=== PATIENT | male | born 1985 | race Caucasian/White ===

== ENCOUNTER 2018-02-16 14:21 | Emergency (ER) | payer SELFPAY ==
[2018-02-16 15:22] LABS: #Eosinphils 0.1 thou/uL (0.0-0.7); #Lymphocytes 1.6 thou/uL (1.20-3.40); #Monocytes 0.6 thou/uL (0.11-0.59); #Neutrophils 5.8 thou/uL (1.40-6.50); %Basophils 0.6 % (0.0-1.0); %Eosinophils 0.6 % (0.0-10.0); %Lymphocytes 19.7 % (21.0-51.0); %Monocytes 6.9 % (0.0-10.0); %Neutrophils 72.2 % (42.0-75.0); Hemoglobin 17.2 g/dL (14.0-18.0); Mean Corpuscular HGB CONC 34.6 g/dL (32.0-36.0); Mean Corpuscular Hemoglobin 30.6 pg (27.0-31.0); Mean Corpuscular Volume 88.4 fL (78.0-98.0); Mean Platelet Volume 8.9 fL (7.4-10.4); Platelet Count 215 thou/uL (130-400); RBC Distribution Width 11.8 % (11.5-14.5); Red Blood Cell (RBC) Count 5.62 mill/uL (4.70-6.10)
[2018-02-16 15:48] LABS: ALT (SGPT) 13 U/L (8-55); AST (SGOT) 20 U/L (5-34); Albumin 4.4 g/dL (3.5-5.0); Alkaline Phosphatase 75 U/L (40-150); Anion Gap 15 mmol/L (10-20); BUN (Urea Nitrogen) 10 mg/dL (8.9-20.6); Bilirubin, Total 1.1 mg/dL (0.2-1.2); Calc. Creatinine Clearance 0 mL/min (70-130); Calcium 9.8 mg/dL (7.8-10.44); Carbon Dioxide 24 mmol/L (22-29); Chloride 99 mmol/L (98-107); Estimated GFR-MDRD 86; Globulin 3.4 g/dL (2.4-3.5); Glucose 117 mg/dL (70-105); Protein, Total 7.8 g/dL (6.0-8.3); Sodium 135 mmol/L (136-145)
[2018-02-16 15:53] LABS: Potassium 2.7 mmol/L (3.5-5.1)
[2018-02-16] MEDS ORDERED: Potassium Chloride 20 MEQ TAB ONE (16:02)
== END 2018-02-16 17:10 | disposition home or self-care (01) ==
LOC: ERS 14:21
DX: E87.6 Hypokalemia (principal); E86.0 Dehydration; K04.7 Periapical abscess without sinus; I10 Essential (primary) hypertension; F32.9 Major depressive disorder, single episode, unspecified; F41.9 Anxiety disorder, unspecified; F17.210 Nicotine dependence, cigarettes, uncomplicated; Z79.899 Other long term (current) drug therapy
CPT/HCPCS: 36415; 80053; 85025; 93005; 96360

== ENCOUNTER 2019-09-09 09:50 | Emergency (ER) | payer SELFPAY ==
[2019-09-09 10:35] LABS: #Eosinphils 0.1 thou/uL (0.0-0.7); #Lymphocytes 1.6 thou/uL (1.20-3.40); #Monocytes 0.6 thou/uL (0.11-0.59); #Neutrophils 3.2 thou/uL (1.40-6.50); %Basophils 0.3 % (0.0-1.0); %Eosinophils 1.6 % (0.0-10.0); %Lymphocytes 28.5 % (21.0-51.0); %Monocytes 11.4 % (0.0-10.0); %Neutrophils 58.3 % (42.0-75.0); Hemoglobin 15.8 g/dL (14.0-18.0); Mean Corpuscular HGB CONC 33.7 g/dL (32.0-36.0); Mean Corpuscular Hemoglobin 32.6 pg (27.0-31.0); Mean Corpuscular Volume 96.8 fL (78.0-98.0); Mean Platelet Volume 9.1 fL (7.4-10.4); Platelet Count 183 thou/uL (130-400); RBC Distribution Width 11.8 % (11.5-14.5); Red Blood Cell (RBC) Count 4.86 mill/uL (4.70-6.10); White Blood Cell (WBC) Count 5.5 thou/uL (4.8-10.8)
--- NOTE | 2019-09-09 10:52 | RAD ---
XR Chest 1 View Portable HISTORY: Altered mental status. COMPARISON: None. FINDINGS: Heart size and mediastinum are within normal limits. The lungs are clear of infiltrates. No significant bony findings. IMPRESSION: No active intrathoracic disease.
[2019-09-09 10:59] LABS: Acetaminophen Less than 6.0 mcg/mL (10.0-30.0); Alcohol Less than 10 mg/dL (Less than 10); Salicylate Less than 8.0 mg/dL (15.0-30.0)
[2019-09-09 11:04] LABS: ALT (SGPT) 16 U/L (8-55); AST (SGOT) 18 U/L (5-34); Alkaline Phosphatase 75 U/L (40-110); Anion Gap 11 mmol/L (10-20); BUN (Urea Nitrogen) 12 mg/dL (8.9-20.6); Bilirubin, Total 0.3 mg/dL (0.2-1.2); CK (CPK) 99 U/L (30-200); Calc. Creatinine Clearance 0 mL/min (70-130); Calcium 8.5 mg/dL (7.8-10.44); Carbon Dioxide 23 mmol/L (22-29); Chloride 107 mmol/L (98-107); Estimated GFR-MDRD 90; Glucose 94 mg/dL (70-105); Sodium 137 mmol/L (136-145)
== END 2019-09-09 14:10 | disposition home or self-care (01) ==
LOC: ERS 09:50
DX: F15.10 Other stimulant abuse, uncomplicated (principal); I10 Essential (primary) hypertension; F31.9 Bipolar disorder, unspecified; F41.9 Anxiety disorder, unspecified; F17.210 Nicotine dependence, cigarettes, uncomplicated
CPT/HCPCS: 36415; 71045; 80053; 80307; 82550; 83605; 83735; 84484; 85025; 93005

== ENCOUNTER 2019-12-05 11:14 | Emergency (ER) | payer SELFPAY ==
[2019-12-05] MEDS ORDERED: Ketorolac Tromethamine 30 MG/ML VIAL ONE (13:22)
[2019-12-05] MEDS ORDERED: HYDROcodone/Acetaminophen 5/325 mg Tablet ONE (13:22)
== END 2019-12-05 15:24 | disposition home or self-care (01) ==
LOC: ERS 11:14
DX: S92.002A Unspecified fracture of left calcaneus, initial encounter for closed fracture (principal); S92.001A Unspecified fracture of right calcaneus, initial encounter for closed fracture; I10 Essential (primary) hypertension; F41.9 Anxiety disorder, unspecified; F32.9 Major depressive disorder, single episode, unspecified; F20.9 Schizophrenia, unspecified; F90.9 Attention-deficit hyperactivity disorder, unspecified type; F17.210 Nicotine dependence, cigarettes, uncomplicated; Z79.899 Other long term (current) drug therapy; W13.9XXA Fall from, out of or through building, not otherwise specified, initial encounter
CPT/HCPCS: 28400; 96372; J1885

== ENCOUNTER 2020-07-27 21:08 | Emergency (ER) | payer SELFPAY ==
[2020-07-27 21:47] LABS: #Lymphocytes 1.8 thou/uL (1.20-3.40); #Neutrophils 7.6 thou/uL (1.40-6.50); %Basophils 0.4 % (0.0-1.0); %Eosinophils 0.4 % (0.0-10.0); %Lymphocytes 17.3 % (21.0-51.0); %Monocytes 9.5 % (0.0-10.0); %Neutrophils 72.4 % (42.0-75.0); Hemoglobin 15.4 g/dL (14.0-18.0); Mean Corpuscular HGB CONC 33.6 g/dL (32.0-36.0); Mean Corpuscular Hemoglobin 30.8 pg (27.0-31.0); Mean Corpuscular Volume 91.6 fL (78.0-98.0); Mean Platelet Volume 8.4 fL (7.4-10.4); Platelet Count 234 thou/uL (130-400); RBC Distribution Width 13.1 % (11.5-14.5); White Blood Cell (WBC) Count 10.5 thou/uL (4.8-10.8)
[2020-07-27 22:09] LABS: ALT (SGPT) 34 U/L (8-55); AST (SGOT) 27 U/L (5-34); Albumin 4.2 g/dL (3.5-5.0); Alkaline Phosphatase 97 U/L (40-110); Anion Gap 15 mmol/L (10-20); BUN (Urea Nitrogen) 22 mg/dL (8.9-20.6); Bilirubin, Total 0.9 mg/dL (0.2-1.2); Calc. Creatinine Clearance 0 mL/min (70-130); Calcium 8.9 mg/dL (7.8-10.44); Carbon Dioxide 23 mmol/L (22-29); Chloride 104 mmol/L (98-107); Globulin 3.5 g/dL (2.4-3.5); Glucose 102 mg/dL (70-105); Potassium 3.5 mmol/L (3.5-5.1); Protein, Total 7.7 g/dL (6.0-8.3); Sodium 138 mmol/L (136-145)
[2020-07-27 22:18] LABS: Amphetamine Not Detected (NotDetected); Barbiturates Screen Not Detected (NotDetected); Benzodiazepine Screen Not Detected (NotDetected); Cocaine Metabolite Screen Not Detected (NotDetected); Medtox Control Line Valid? VALID (VALID); Medtox Reader # READER 4; Methadone Not Detected (NotDetected); Methamphetamine Not Detected (NotDetected); Opiate Screen Not Detected (NotDetected); Oxycodone Screen Not Detected (NotDetected); Phencyclidine (PCP) Not Detected (NotDetected); THC/Cannabinoid Screen Detected (NotDetected); Tricyclic Screen Detected (NotDetected)
[2020-07-27 23:35] LABS: Alcohol Less than 10 mg/dL (Less than 10)
[2020-07-27 23:38] LABS: Acetaminophen Less than 6.0 mcg/mL (10.0-30.0); CK (CPK) 663 U/L (30-200); Salicylate Less than 8.0 mg/dL (15.0-30.0)
== END 2020-07-28 03:41 | disposition home or self-care (01) ==
LOC: ERS 21:08
DX: R44.3 Hallucinations, unspecified (principal); I10 Essential (primary) hypertension; F17.210 Nicotine dependence, cigarettes, uncomplicated; Z79.899 Other long term (current) drug therapy
CPT/HCPCS: 36415; 36416; 80053; 80306; 80307; 82550; 84443; 85025; 93005

== ENCOUNTER 2020-07-28 05:21 | Inpatient (IN) | payer SELFPAY ==
[2020-07-28] MEDS ORDERED: Succinylcholine 200 MG/10 ml SYRINGE FS ONE (05:24)
[2020-07-28] MEDS ORDERED: EPINEPHrine 1 MG/10 ML Abboject SYRINGE ONE (05:28)
[2020-07-28] MEDS ORDERED: Amiodarone 150 MG/3 ML VIAL ONE (05:28)
[2020-07-28] MEDS ORDERED: Calcium Chloride 1 GM/10 ML Abboject SYRINGE ONE (05:28)
[2020-07-28] MEDS ORDERED: Sodium Bicarb 50 MEQ/50 ML Abboject 8.4% SYRINGE ONE (05:28)
[2020-07-28] MEDS ORDERED: Rocuronium Bromide 10 MG/ML (10ML VIAL) ONE (05:28)
[2020-07-28] MEDS ORDERED: Norepinephrine 8 MG/0.9% NS 250 ML ONE (05:46)
[2020-07-28 05:53] LABS: Actual Bicarbonate (HCO3a) 5.7 mEq/L (22-28); Analyzer IN Cardio ER; Base Excess (BEa) -29.7 mEq/L (-2.0 to +3.0); CO2 Tension 41.1 mmHg (35.0-45.0); Calcium, Ionized (arterial) 1.25 mmol/L (1.12-1.30); Carboxyhemoglobin (COHb) 1.4 gm% (0.0-3.0); Hemoglobin (Hb) 14.5 g/dL (14.0-18.0)
[2020-07-28 05:55] LABS: pH, Arterial 6.76 (7.35-7.45)
[2020-07-28 05:56] LABS: O2 Tension (PaO2), arterial 549.6 mmHg (80.0-100.0); Puncture Site LFA
[2020-07-28 05:57] LABS: ALV-art Gradient 107.025 mmHg (0-20)
[2020-07-28] MEDS ORDERED: Fentanyl CADD 100 ML IV SCH (06:00)
[2020-07-28 06:03] LABS: Bilirubin Negative (Negative); Blood, Urine Negative (Negative); Glucose, Urine (Dipstick) Negative (Negative); Ketone, Urine 40 mg/dL (Negative); Leukocyte Negative (Negative); Nitrite Negative (Negative); Protein, Urine (Dipstick) Trace mg/dL (Neg-Trace); Specific Gravity, Urine 1.025 (1.005-1.030); Urobilinogen 0.2 mg/dL (Less than 2)
[2020-07-28 06:04] LABS: Bacteria/HPF None Seen HPF (None Seen); Clarity Clear (Clear); Mucous/LPF 1+ LPF (<2+); RBC/HPF 0-3 HPF (0-3); Squamous Epithelial 0-3 HPF (0-3); WBC/HPF 0-3 HPF (0-3)
[2020-07-28 06:14] LABS: Amphetamine Not Detected (NotDetected); Barbiturates Screen Not Detected (NotDetected); Benzodiazepine Screen Not Detected (NotDetected); Cocaine Metabolite Screen Not Detected (NotDetected); Medtox Control Line Valid? VALID (VALID); Medtox Reader # READER 4; Methadone Not Detected (NotDetected); Methamphetamine Not Detected (NotDetected); Opiate Screen Not Detected (NotDetected); Oxycodone Screen Not Detected (NotDetected); Phencyclidine (PCP) Not Detected (NotDetected); THC/Cannabinoid Screen Detected (NotDetected); Tricyclic Screen Not Detected (NotDetected)
[2020-07-28 06:27] LABS: ALT (SGPT) 137 U/L (8-55); AST (SGOT) 195 U/L (5-34); Acetaminophen Less than 6.0 mcg/mL (10.0-30.0); Albumin 3.8 g/dL (3.5-5.0); Alcohol Less than 10 mg/dL (Less than 10); Alkaline Phosphatase 103 U/L (40-110); Anion Gap 46 mmol/L (10-20); BUN (Urea Nitrogen) 21 mg/dL (8.9-20.6); Band 6 % (5-11); Bilirubin, Total 0.9 mg/dL (0.2-1.2); Calc. Creatinine Clearance 0 mL/min (70-130); Calcium 12.1 mg/dL (7.8-10.44); Carbon Dioxide 9 mmol/L (22-29); Chloride 98 mmol/L (98-107); Glucose 67 mg/dL (70-105); Hemoglobin 15.3 g/dL (14.0-18.0); Lymphocytes 31 % (21-51); MDiff Complete? YES; Magnesium 4.4 mg/dL (1.6-2.6); Mean Corpuscular HGB CONC 31.6 g/dL (32.0-36.0); Mean Corpuscular Hemoglobin 31.2 pg (27.0-31.0); Mean Corpuscular Volume 98.8 fL (78.0-98.0); Monocytes 8 % (0-10); Neutrophil 50 % (42-75); Platelet Count 235 thou/uL (130-400); Platelet Morphology Comment Appears Adequate; Potassium 5.6 mmol/L (3.5-5.1); Protein, Total 6.8 g/dL (6.0-8.3); RBC Distribution Width 13.1 % (11.5-14.5); RBC Morphology Normal; Reactive Lymphocytes 5 % (0-10); Red Blood Cell (RBC) Count 4.92 mill/uL (4.70-6.10); Salicylate Less than 8.0 mg/dL (15.0-30.0); Sodium 147 mmol/L (136-145); White Blood Cell (WBC) Count 18.8 thou/uL (4.8-10.8)
[2020-07-28 06:45] LABS: CKMB 3.1 ng/mL (0-6.6)
[2020-07-28] MEDS ORDERED: Sodium Bicarbonate 150 MEQ in Dextrose 5% in Water 1,000 ML IV SCH (06:45)
[2020-07-28] MEDS ORDERED: Acetaminophen 325 MG Suppository ONE (06:57)
[2020-07-28 07:46] LABS: SARS-CoV-2 NAA Rapid Test Not Detected (NotDetected)
[2020-07-28 08:19] LABS: Troponin I 1.968 ng/mL (< 0.028)
[2020-07-28] MEDS ORDERED: Propofol 1,000 MG/100 ML VIAL IV ONE (08:36)
[2020-07-28] MEDS ORDERED: Sodium Bicarbonate 50 MEQ in Sodium Chloride 0.45% 1,000 ML IV SCH (09:00)
[2020-07-28] MEDS ORDERED: Lorazepam 2 MG/ML VIAL ONE ×2 (09:18→10:50)
[2020-07-28 09:29] LABS: Lactic Acid 2.5 mmol/L (0.5-2.2)
[2020-07-28] MEDS: Lorazepam 2 MG/ML VIAL SLOW IVP PRN ×3 (09:30→23:03)
[2020-07-28] MEDS ORDERED: Propofol BOLUS 1,000 MG/100 ML VIAL IV PRN (09:45)
[2020-07-28] MEDS ORDERED: DISCONTINUE PREVIOUS NARCOTIC PAIN MEDICATIONS AND BENZODIAZEPINES FS SCH (09:45)
[2020-07-28] MEDS ORDERED: Morphine 2 MG/ML VIAL SLOW IVP PRN (09:45)
[2020-07-28 10:39] LABS: Anion Gap 24 mmol/L (10-20); BUN (Urea Nitrogen) 27 mg/dL (8.9-20.6); Calc. Creatinine Clearance 0 mL/min (70-130); Calcium 7.3 mg/dL (7.8-10.44); Carbon Dioxide 18 mmol/L (22-29); Chloride 103 mmol/L (98-107); Glucose 90 mg/dL (70-105); Potassium 3.6 mmol/L (3.5-5.1); Sodium 141 mmol/L (136-145)
[2020-07-28] MEDS ORDERED: SODIUM CHLORIDE 0.9% IVPB SCH (11:15)
[2020-07-28] MEDS ORDERED: LEVETIRACETAM IVPB SCH (11:15)
[2020-07-28] MEDS ORDERED: Lorazepam 2 MG/ML VIAL SLOW IVP SCH (11:15)
[2020-07-28] MEDS: Famotidine/PF 20 mg/2ml Vial SLOW IVP SCH (11:35)
[2020-07-28 11:46] VITALS: BMI 29.9
[2020-07-28 12:11] LABS: Troponin I 15.892 ng/mL (< 0.028)
[2020-07-28 13:53] LABS: Actual Bicarbonate (HCO3a) 16.4 mEq/L (22-28); Base Excess (BEa) -6.9 mEq/L (-2.0 to +3.0); CO2 Tension 28.2 mmHg (35.0-45.0); Calcium, Ionized (arterial) 0.94 mmol/L (1.12-1.30); Carboxyhemoglobin (COHb) 0.3 gm% (0.0-3.0); Hemoglobin (Hb) 16.7 g/dL (14.0-18.0); O2 Tension (PaO2), arterial 174.4 mmHg (80.0-100.0); Potassium - ABG Lab 2.94 mmol/L (3.70-5.30); Puncture Site RBA; pH, Arterial 7.38 (7.35-7.45)
[2020-07-28] MEDS ORDERED: Lactated Ringer's 1,000 ML IV SCH (14:00)
[2020-07-28] MEDS: Lactated Ringer's 1,000 ML IV SCH ×2 (15:36→20:54)
[2020-07-28] MEDS: Sodium Bicarbonate 150 MEQ in Dextrose 5% in Water 1,000 ML IV SCH (15:36)
[2020-07-28] MEDS ORDERED: hydrALAZINE 20 MG/ML VIAL SLOW IVP PRN (18:07)
[2020-07-28 18:08] LABS: Anion Gap 18 mmol/L (10-20); BUN (Urea Nitrogen) 39 mg/dL (8.9-20.6); Calc. Creatinine Clearance 54 mL/min (70-130); Calcium 6.3 mg/dL (7.8-10.44); Carbon Dioxide 18 mmol/L (22-29); Chloride 103 mmol/L (98-107); Glucose 152 mg/dL (70-105); Sodium 136 mmol/L (136-145)
[2020-07-28 18:14] LABS: Potassium 2.7 mmol/L (3.5-5.1)
[2020-07-28] MEDS ORDERED: NIFEdipine XL 30 MG TAB PO SCH (18:45)
[2020-07-28] MEDS ORDERED: Potassium Chloride 40 MEQ in Premix Bag 1 BAG IVPB SCH (19:30)
[2020-07-28] MEDS: levETIRAcetam in NS 1,500 MG in Premix Bag 1 BAG IVPB SCH (21:01)
[2020-07-28] MEDS: Nitroglycerin 2% Ointment 1 INCH/1 GM Packet TOP SCH (21:57)
[2020-07-28] MEDS ORDERED: Calcium Gluconate 9.2 MEQ in Sodium Chloride 0.9% 250 ML 200 ML IVPB SCH (22:00)
[2020-07-28] MEDS: Propofol 1,000 MG/100 ML VIAL IV PRN (23:04)
[2020-07-29 00:56] LABS: Troponin I 37.544 ng/mL (< 0.028)
[2020-07-29] MEDS: Lactated Ringer's 1,000 ML IV SCH ×5 (03:04→13:33)
[2020-07-29] MEDS: Nitroglycerin 2% Ointment 1 INCH/1 GM Packet TOP SCH ×3 (03:04→14:00)
[2020-07-29] MEDS: Sodium Bicarbonate 150 MEQ in Dextrose 5% in Water 1,000 ML IV SCH (03:05)
[2020-07-29 04:31] LABS: #Eosinphils 0.1 thou/uL (0.0-0.7); #Lymphocytes 0.7 thou/uL (1.20-3.40); #Monocytes 0.4 thou/uL (0.11-0.59); #Neutrophils 16.6 thou/uL (1.40-6.50); %Basophils 0.2 % (0.0-1.0); %Eosinophils 0.3 % (0.0-10.0); %Lymphocytes 4.2 % (21.0-51.0); %Monocytes 2.5 % (0.0-10.0); %Neutrophils 92.9 % (42.0-75.0); Hemoglobin 14.6 g/dL (14.0-18.0); Mean Corpuscular Hemoglobin 31.4 pg (27.0-31.0); Mean Corpuscular Volume 92.5 fL (78.0-98.0); Mean Platelet Volume 8.8 fL (7.4-10.4); Platelet Count 122 thou/uL (130-400); RBC Distribution Width 13.5 % (11.5-14.5); Red Blood Cell (RBC) Count 4.65 mill/uL (4.70-6.10); White Blood Cell (WBC) Count 17.9 thou/uL (4.8-10.8)
[2020-07-29 04:36] LABS: ALT (SGPT) 1250 U/L (8-55); Albumin 2.8 g/dL (3.5-5.0); Alkaline Phosphatase 125 U/L (40-110); Anion Gap 16 mmol/L (10-20); BUN (Urea Nitrogen) 49 mg/dL (8.9-20.6); Bilirubin, Total 1.3 mg/dL (0.2-1.2); Calc. Creatinine Clearance 38 mL/min (70-130); Calcium 6.3 mg/dL (7.8-10.44); Carbon Dioxide 22 mmol/L (22-29); Chloride 101 mmol/L (98-107); Globulin 2.5 g/dL (2.4-3.5); Glucose 126 mg/dL (70-105); Protein, Total 5.3 g/dL (6.0-8.3); Sodium 136 mmol/L (136-145)
[2020-07-29 04:39] LABS: AST (SGOT) Greater than 3500 U/L (5-34); Potassium 2.9 mmol/L (3.5-5.1)
[2020-07-29] MEDS ORDERED: Potassium Chloride 40 MEQ in Premix Bag 1 BAG IVPB SCH (05:00)
[2020-07-29] MEDS: Lorazepam 2 MG/ML VIAL SLOW IVP PRN ×3 (06:20→12:30)
[2020-07-29 08:12] LABS: Base Excess (BEa) -1.4 mEq/L (-2.0 to +3.0); CO2 Tension 26.1 mmHg (35.0-45.0); Calcium, Ionized (arterial) 0.85 mmol/L (1.12-1.30); Carboxyhemoglobin (COHb) 0.4 gm% (0.0-3.0); Hemoglobin (Hb) 15.2 g/dL (14.0-18.0); O2 Tension (PaO2), arterial 71.5 mmHg (80.0-100.0); Potassium - ABG Lab 3.52 mmol/L (3.70-5.30)
[2020-07-29 08:14] LABS: ALV-art Gradient 181.075 mmHg (0-20); Puncture Site RRA
[2020-07-29] MEDS: Propofol 1,000 MG/100 ML VIAL IV PRN ×2 (08:26→13:32)
[2020-07-29] MEDS: Famotidine/PF 20 mg/2ml Vial SLOW IVP SCH (08:27)
[2020-07-29] MEDS: levETIRAcetam in NS 1,500 MG in Premix Bag 1 BAG IVPB SCH (08:27)
[2020-07-29] MEDS ORDERED: NIFEdipine XL 30 MG TAB PO SCH (09:00)
[2020-07-29] MEDS ORDERED: Metoprolol Tartrate 25 MG TAB PER TUBE SCH ×2 (10:15→21:00)
[2020-07-29] MEDS ORDERED: cloNIDine 0.1mg/24 Hour PATCH TD SCH (11:45)
[2020-07-29] MEDS ORDERED: Furosemide 40 MG/4 ML VIAL SLOW IVP SCH (11:45)
[2020-07-29] MEDS ORDERED: Amlodipine 10 MG TAB PO SCH (11:45)
[2020-07-29] MEDS ORDERED: Potassium Chloride 40 MEQ in Sodium Chloride 0.9% 250 ML 250 ML IVPB SCH (12:00)
[2020-07-29] MEDS ORDERED: Acetaminophen 650 MG Suppository PR PRN (13:01)
[2020-07-29] MEDS ORDERED: Acetaminophen 325 MG TAB PO PRN (13:01)
[2020-07-29 15:00] VITALS: BP 141/90
[2020-07-29] MEDS ORDERED: Lactated Ringer's 1,000 ML IV SCH (16:45)
[2020-07-29 18:04] VITALS: TEMP 102
[2020-07-30] MEDS ORDERED: Amlodipine 10 MG TAB PO SCH (09:00)
[2020-08-05] MEDS ORDERED: cloNIDine 0.1mg/24 Hour PATCH TD SCH (09:00)
== END 2020-07-29 18:07 | disposition hospice, inpatient (51) | DRG 91 ==
LOC: ERS 05:21 → CCU 06:50
PROVIDERS: ADMIT Internal Medicine; ATTEND Internal Medicine
PROC: 5A12012 Performance of Cardiac Output, Single, Manual (ICD-10-PCS; principal; 2020-07-28)
PROC: 5A1945Z Respiratory Ventilation, 24-96 Consecutive Hours (ICD-10-PCS; 2020-07-28)
PROC: 02HV33Z Insertion of Infusion Device into Superior Vena Cava, Percutaneous Approach (ICD-10-PCS; 2020-07-28)
PROC: 0D9670Z Drainage of Stomach with Drainage Device, Via Natural or Artificial Opening (ICD-10-PCS; 2020-07-28)
PROC: 0BH17EZ Insertion of Endotracheal Airway into Trachea, Via Natural or Artificial Opening (ICD-10-PCS; 2020-07-28)
PROC: 3E033XZ Introduction of Vasopressor into Peripheral Vein, Percutaneous Approach (ICD-10-PCS; 2020-07-28)
PROC: 5A2204Z Restoration of Cardiac Rhythm, Single (ICD-10-PCS; 2020-07-28)
DX: G93.1 Anoxic brain damage, not elsewhere classified (principal); J96.01 Acute respiratory failure with hypoxia; I46.9 Cardiac arrest, cause unspecified; N17.0 Acute kidney failure with tubular necrosis; E87.2 Acidosis; R44.3 Hallucinations, unspecified; I47.1 Supraventricular tachycardia; M62.82 Rhabdomyolysis; G93.40 Encephalopathy, unspecified; F12.10 Cannabis abuse, uncomplicated; Z20.822 Contact with and (suspected) exposure to COVID-19; Z66 Do not resuscitate; Z51.5 Encounter for palliative care; E87.5 Hyperkalemia; F41.9 Anxiety disorder, unspecified; F31.9 Bipolar disorder, unspecified; I10 Essential (primary) hypertension; E83.52 Hypercalcemia; G93.89 Other specified disorders of brain; G40.909 Epilepsy, unspecified, not intractable, without status epilepticus; Z79.899 Other long term (current) drug therapy; Z78.1 Physical restraint status; Z88.8 Allergy status to other drugs, medicaments and biological substances; K72.90 Hepatic failure, unspecified without coma; E87.6 Hypokalemia; E83.51 Hypocalcemia; E83.41 Hypermagnesemia
CPT/HCPCS: 31500; 36415; 36556; 36600; 51702; 70450; 71045; 80053; 80306; 80307; 81003; 82550; 82553; 82805; 83605; 83735; 84484; 85025; 87040; 92950; 93005; 94002; 94003; 95712; 95819; 95957; 96365; 96366; 96374; 99292; J0171; J0282; J0360; J1940; J1953; J2001; J2060; J2270; J2704; J3010; J3480; J7050; J7070; S0028; U0002; U0005

== ENCOUNTER 2020-07-29 18:26 | Inpatient (IN) | payer OTHER ==
[2020-07-29] MEDS ORDERED: Morphine 4 MG/ML VIAL ONE (18:48)
[2020-07-29] MEDS ORDERED: Lorazepam 2 MG/ML VIAL ONE (18:48)
[2020-07-29] MEDS ORDERED: Lorazepam 2 MG/ML VIAL SLOW IVP PRN (18:49)
[2020-07-29] MEDS ORDERED: Morphine 2 MG/ML VIAL SLOW IVP PRN (18:50)
[2020-07-29] MEDS ORDERED: Acetaminophen 650 MG Suppository PR PRN (19:00)
[2020-07-29] MEDS ORDERED: Haloperidol Lactate 5 MG/ML VIAL SLOW IVP PRN (19:00)
[2020-07-29] MEDS ORDERED: Ondansetron PF 4 MG/2 ML Vial IVP PRN (19:00)
[2020-07-29] MEDS ORDERED: Scopolamine 1.5 mg/72 hour Patch TOP PRN (19:00)
[2020-07-29] MEDS ORDERED: Morphine 4 MG/ML VIAL SLOW IVP SCH (21:00)
[2020-07-29] MEDS ORDERED: Lorazepam 2 MG/ML VIAL SLOW IVP SCH (21:00)
== END 2020-07-29 19:12 | disposition expired | DRG 951 ==
LOC: CCU 18:26
PROVIDERS: ADMIT Internal Medicine; ATTEND Internal Medicine
DX: Z51.5 Encounter for palliative care (principal); N17.0 Acute kidney failure with tubular necrosis; J96.01 Acute respiratory failure with hypoxia; E87.2 Acidosis; G93.1 Anoxic brain damage, not elsewhere classified; R44.3 Hallucinations, unspecified; M62.82 Rhabdomyolysis; Z66 Do not resuscitate; E87.5 Hyperkalemia; F19.10 Other psychoactive substance abuse, uncomplicated; E83.52 Hypercalcemia; F31.9 Bipolar disorder, unspecified; I46.8 Cardiac arrest due to other underlying condition; G40.909 Epilepsy, unspecified, not intractable, without status epilepticus
CPT/HCPCS: J2060; J2270